=== PATIENT | female | born 1995 | race Two or more races ===

== ENCOUNTER 2024-04-20 22:06 | Emergency (ER) | payer MEDICAID ==
[~2024-04-20] VITALS: Ht 152.4 cm; Wt 71.4 kg
[2024-04-20 22:36] VITALS: BP 119/83; PULSE 120; RESP 16; TEMP 98.3; O2SAT 100
--- NOTE | 2024-04-20 23:02 | ED.PDOC ---
History of Present Illness(SKN HPI Comments This is a 28-year-old female presents to the ED chief complaint bilateral armpit abscesses x1 week. Patient states she was recently seen about a week ago was prescribed antibiotics however has not filled the prescription. She is complaining of pain 7/10 on pain scale pressure and sharp aching type pain. States no drainage. Denies fever, chills, nausea or vomiting. Chief Complaint: Wound Check Time Seen by MD: 22:08 History of Present Illness: Nurses Notes, Medications, Allergies Allergies: Coded Allergies: NO KNOWN ALLERGIES (Unverified , 04/20/24) Home Meds Active Scripts Ibuprofen (Ibuprofen) 800 Mg Tab, 1 TAB PO TID PRN for 7 Days, #21 TAB Prov:MEDARDO PAN [employer] GUARD 04/20/24 Information Source: Patient Mode of Arrival: Ambulatory Past Medical History PAST MEDICAL HISTORY: Denies Surgical History: Denies all surgeries UPHOLSTERY TECHNICIAN History: No Pertinent UPHOLSTERY TECHNICIAN History Family History Family History: Reviewed,noncontributory to illness Social History Smoker: Non-Smoker Alcohol: Denies ETOH Use Drugs: Denies Drug Use Constitutional: denies: chills, diaphoresis, fatigue, fever, malaise, sweats, weakness, others EENTM: denies: blurred vision, double vision, ear bleeding, ear discharge, ear drainage, ear pain, ear ringing, eye pain, eye redness, hearing loss, mouth pain, mouth swelling, nasal discharge, nose bleeding, nose congestion, nose pain, photophobia, tearing, throat pain, throat swelling, voice changes, others Respiratory: denies: cough, hemoptysis, orthopnea, SOB at rest, shortness of breath, SOB with excertion, stridor, wheezing, others Cardiovascular: denies: chest pain, dizzy spells, diaphoresis, Dyspnea on exertion, edema, irregular heart beat, left arm pain, lightheadedness, palpitations, PND, syncope, others Gastrointestinal: denies: abdomen distended, abdominal pain, blood streaked bowels, constipated, diarrhea, dysphagia, difficulty swallowing, hematemesis, melena, nausea, poor appetite, poor fluid intake, rectal bleeding, rectal pain, vomiting, others Genitourinary: denies: abnormal vagina bleeding, burning, dyspareunia, dysuria, flank pain, frequency, hematuria, incontinence, pain, , vagina discharge, urgency, others Neurological: denies: dizziness, fainting, headache, left sided numbness, left sided weakness, numbness, paresthesia, pre-existing deficit, right sided numbness, right sided weakness, seizure, speech problems, tingling, tremors, weakness, others Musculoskeletal: denies: back pain, gout, joint pain, joint swelling, muscle pain, muscle stiffness, neck pain, others Integumetry: reports: lumps (Bilateral arm pits); denies: bruises, change in color, change in hair/nails, dryness, laceration, lesions, rash, wounds, others Allergic/Immunocompromised: denies: Difficulty Healing, Frequent Infections, Hives, Itching, others Hematologic/Lymphatic: denies: anemia, blood clots, easy bleeding, easy bruising, swollen glands, others Psychiatric: denies: anxiety, bipolar disorder, depression, hopeless, panic disorder, schizophrenia, sleepless, suicidal, others Physical Exam General Appearance: No Apparent Distress, Normal HEENT: Pharynx Normal Neck: Full Range of Motion, Non-Tender Respiratory: Lungs Clear, No Respiratory Distress, Normal Breath Sounds Cardiovascular: No Murmur, Normal Peripheral Pulses, Regular Rate/Rhythm Breast Exam: Deferred Gastrointestinal: Non Tender, Soft Genitalia: Deferred Pelvic: Deferred Rectal: Deferred Extremities: No calf tenderness, Normal capillary refill, Normal inspection, Normal range of motion, Non-tender, No pedal edema Musculoskeletal : Apperance: Normal Neurologic: Alert, director patient accounting II-XII nml as Tested, No Motor Deficits, Normal Affect, Normal Mood, No Sensory Deficits Cerebellar Function: Normal Reflexes: Normal Skin: Dry, Normal Color, Warm, Other (Armpits with several abscesses all non fluctuant hard to touch no noted drainage trace erythema no streaking no noted adenopathy) Lymphatic: No Adenopathy Was a procedure done? Was a procedure done?: No Differential Diagnosis (INTG) Differential Diagnosis: Cellulitis Differential Diagnosis: Abscess, Impetigo X-Ray, Labs, Meds, VS Vital Signs Date Time Temp Pulse Resp B/P (MAP) Pulse Ox O2 Delivery O2 Flow Rate FiO2 04/20/24 22:36 98.3 120 16 119/83 (95) 100 04/20/24 22:36 Room Air 04/20/24 22:36 98.3 120 16 119/83 (95) 100 98.3 Current Medications Medications (Trade) Dose Ordered Sig/[place] Route Start Time Stop Time Status Last Admin Ketorolac Tromethamine (Toradol Injection) 60 mg ONCE ONCE IM 04/20/24 23:15 04/20/24 23:16 DC 04/20/24 23:30 Acetaminophen/ Hydrocodone Bitart ([place] 5/325MG Tab) 2 tab ONCE ONCE PO 04/20/24 23:15 04/20/24 23:16 DC 04/20/24 23:30 X-Ray, Labs, Meds, VS Comment Patient given [place] for the pain reports improvement symptoms requesting discharge at this time. Patient to fill her prescribed antibiotic at the pharmacy, script ibuprofen 800 mg t.i.d. p.r.n. Warm compresses several times a day to soften it up and encourage drainage. Follow back up at urgent care, ER primary care doctor in 2-3 days as necessary consider I and D for continued symptoms and no drainage. ER return precautions given patient indicates understanding and agrees with discharge plan of care. Time of 1ST Reevaluation: 23:00 Reevaluation 1ST: Improved Patient Education/Counseling: Diagnosis, Treatment, Prognosis, Need For Follow Up Family Education/Counseling: No Family Present Departure 1 Departure Time of Disposition: 23:06 Impression: Primary Impression: Hidradenitis suppurativa of left axilla Additional Impression: Hidradenitis suppurativa of right axilla Disposition: HOME / SELF CARE / HOMELESS Condition: Stable e-Prescriptions Ibuprofen (Ibuprofen) 800 Mg Tab 1 TAB PO TID PRN for 7 Days, #21 TAB Prov: MEDARDO PAN 04/20/24 Discharged With: Significant Other Critical Care Note Critical Care Time?: No Stability Stability form required: MEDARDO Donohue Apr 20, 2024 23:02
[2024-04-20] MEDS: KETOROLAC TROMETH 60MG/2ML VIAL IM ONE (23:30)
[2024-04-20] MEDS: HYDROcodone-ACET 5/325MG TAB PO ONE (23:30)
[2024-04-20] MEDS ORDERED: IBUP-1456 PO (23:37)
== END 2024-04-20 23:42 | disposition home or self-care (01) ==
LOC: ER 22:06
DX: L73.2 Hidradenitis suppurativa (principal)
CPT/HCPCS: 96372; 99283; J1885